=== PATIENT | male | born 2000 ===

== ENCOUNTER 2018-11-10 14:57 | Emergency (ER) | payer OTHER ==
[2018-11-10 15:13] VITALS: RESP 18; TEMP 98.2
[2018-11-10] MEDS ORDERED: ACETAMINOPHEN 500 MG 500 MG TAB PO ONE (15:35)
[2018-11-10] MEDS ORDERED: ACETAMINOPHEN 500 MG 500 MG TAB ONE (15:38)
[2018-11-10 16:07] VITALS: O2SAT 97
[2018-11-10 16:23] VITALS: BP 126/77; PULSE 94
== END 2018-11-10 16:24 | disposition home or self-care (01) | DRG 552 ==
LOC: ED 14:57
DX: S13.4XXA Sprain of ligaments of cervical spine, initial encounter (principal); V43.52XA Car driver injured in collision with other type car in traffic accident, initial encounter; S13.9XXA Sprain of joints and ligaments of unspecified parts of neck, initial encounter
CPT/HCPCS: 70450; 72125; 99283; G0390; L0130